=== PATIENT | female | born 1985 | race Caucasian/White ===

== ENCOUNTER 2019-04-22 11:33 | Emergency (ER) | payer OTHER ==
[~2019-04-22] VITALS: Ht 157.5 cm; Wt 81.7 kg
[~2019-04-22 11:33] MED LIST: CIPROFLOXACIN500 M1 PO; DOXYCYCLINE 10100 MG PO; FLEXERIL PO; HYDROCODONE-AP1 EAC6 PO; IBUPROFEN 800800 MG PO; LAMICTAL100 MG PO; NORCO 5-325 TA1 EACH PO; ZOFRAN4 MG PO
[2019-04-22 11:40] VITALS: BP 129/80
[2019-04-22] MEDS ORDERED: METFORMIN HCL500 M3 PO (11:43)
[2019-04-22] MEDS ORDERED: KEFLEX500 M1 PO (12:13)
== END 2019-04-22 12:25 | disposition home or self-care (01) ==
LOC: M.ERS 11:33
DX: L72.3 Sebaceous cyst (principal); L08.9 Local infection of the skin and subcutaneous tissue, unspecified; E11.9 Type 2 diabetes mellitus without complications; Z90.49 Acquired absence of other specified parts of digestive tract; Z98.890 Other specified postprocedural states